=== PATIENT | female | born 1990 | race African-American/Black ===

== ENCOUNTER 2017-10-02 09:28 | Emergency (ER) | payer SELFPAY ==
[2017-10-02] MEDS ORDERED: NS 0.9% 1000 ML* 1,000 ML IV ONE ×3 (09:45→12:29)
[2017-10-02] MEDS ORDERED: Metoclopramide IV* 5 MG/ML 2 ML VIAL IV ONE (09:46)
--- NOTE | 2017-10-02 10:01 | ED ---
Abdominal Pain/Female - HPI Summary HPI Summary: Patient here with abrupt onset nausea and vomiting last night at 2100. She denies any preceding pain, fever, chills, URI symptoms, chest pain, shortness of breath, abdominal pain, flank pain, urinary symptoms, vaginal symptoms. She reports her vomiting persisted for multiple episodes despite trying to drink liquids in between. She continues to have some subtle nausea while here today. She admits her friend was vomiting on and she help take care of him. When asked about she states she could be however reported to nursing that she's had her period longer than usual and is on it now. She is having some epigastric discomfort since she's been vomiting. Otherwise continues to deny abdominal/pelvic pain. She also denies eating or drinking anything new or out of the normal, no new meds or supplements. - History of Current Complaint Chief Complaint: EDNauseaVomitDiarrh Stated Complaint: VOMITING Time Seen by Provider: 10/02/17 09:31 Hx Obtained From: Patient Pain Intensity: 8 Allergies/Adverse Reactions: Allergies Allergy/AdvReac Type Severity Reaction Status Date / Time No Known Allergies Allergy Verified 10/02/17 09:34 PMH/Surg Hx/FS Hx/Imm Hx Previously Healthy: Yes Endocrine/Hematology History: Denies: Autoimmune Disease GI History: Denies: Hx Cirrhosis, Hx Crohn's Disease, Hx Diverticulosis, Hx Gall Bladder Disease, Hx Gastroesophageal Reflux Disease, Hx Gastrointestinal Bleed, Hx Hiatal Hernia, Hx Irritable Bowel, Hx Obstructive Bowel, Hx Ulcer History: Denies: Hx Kidney Infection, Hx Kidney Stones, Other Problems/Disorders Infectious Disease History: No Infectious Disease History: Denies: Traveled Outside the [place] in Last 30 Days - Social History Alcohol Use: Weekly Hx Substance Use: No Substance Use Type: Reports: None Hx Tobacco Use: Yes Smoking Status (MU): Current Some Day Smoker Review of Systems Positive: Fatigue - feels wiped out. Negative: Fever, Chills Eyes: Negative ENT: Negative Cardiovascular: Negative Respiratory: Negative Positive: Vomiting, Nausea. Negative: Abdominal Pain, Diarrhea Genitourinary: Negative Positive: Myalgia Skin: Negative Positive: Headache Psychological: Normal All Other Systems Reviewed And Are Negative: Yes Physical Exam Triage Information Reviewed: Yes Vital Signs On Initial Exam: Initial Vitals Temp Pulse Resp BP Pulse Ox 98.3 F 85 16 106/64 96 05/05/18 09:31 10/02/17 09:31 10/02/17 09:31 10/02/17 09:31 10/02/17 09:31 Vital Signs Reviewed: Yes Appearance: Positive: No Pain Distress, Well-Nourished - Appears fatigued Skin: Positive: Warm, Skin Color Reflects Adequate Perfusion, Dry - No rash Head/Face: Positive: Normal Head/Face Inspection Eyes: Positive: Normal, EOMI, Conjunctiva Clear - Anicteric sclera ENT: Positive: Normal ENT inspection, Hearing grossly normal, Pharynx normal. Negative: Nasal congestion, Nasal drainage Neck: Positive: Supple, Nontender, No Lymphadenopathy Respiratory/Lung Sounds: Positive: Clear to Auscultation, Breath Sounds Present. Negative: Rales, Rhonchi, Wheezes Cardiovascular: Positive: Normal, RRR, S1, S2 Musculoskeletal: Positive: Normal, Strength/ROM Intact Neurological: Positive: Normal, Sensory/Motor Intact, Alert, Oriented to Person Place, Time, CN Intact II-III Psychiatric: Positive: Normal Diagnostics - Vital Signs Vital Signs Temp Pulse Resp BP Pulse Ox 10/02/17 09:37 84 98 10/02/17 09:31 98.3 F 77 16 106/64 98 - Laboratory Result Diagrams: 10/02/17 09:57 10/02/17 09:57 Lab Statement: Any lab studies that have been ordered have been reviewed, and results considered in the medical decision making process. Re-Evaluation - Re-Evaluation First Eval Change: Improved - nausea improved- would like to try drinking fluids Abdominal Pain Fem Course/Dx - Course Course Of Treatment: Pt here with abrupt onset nausea and vomiting since last night at 21:00. This persisted through the night and into today which brought her here. She's developed mild epigastric discomfort from all the vomiting however denies any lower abdominal pain. She is also not had any URI symptoms or fever and admits her friend whom she had contact with had similar symptoms on of this week. She has improved with IV fluids and Reglan. Her magnesium level was found to be slightly low so this was replaced with mag oxide by mouth which she tolerated well. Patient was able to tolerate PO and void prior to departure. She was kept for a 2nd bag of IV fluids as her BP was persistently low but eventually improved and w/o tachycardia. UA reveals + protein, ketone and urobil w/o blood or bacteria -suspect these findings correlate w/ dehydration. Other labs are remarkable for mild dehydration and viral infection. HCG is also negative for . She'll be diagnosed with viral gastroenteritis and advised on supportive care. If danger signs or symptoms present, she will return to the emergency department. - Diagnoses Provider Diagnoses: Gastroenteritis, Dehydration Discharge - Sign-Out/Discharge Documenting (check all that apply): Discharge/Admit/Transfer - Discharge Plan Condition: Stable Disposition: HOME Prescriptions: Ondansetron ODT TAB* [Zofran 4 MG Odt TAB*] 4 mg PO Q8H PRN #9 tab.odt PRN Reason: Nausea Patient Education Materials: Dehydration (ED), Gastroenteritis (ED) Referrals: No Primary Care Phys,NOPCP [Primary Care Provider] - [facility] [Outside] Additional Instructions: Rest, fluids for hydration including water, gatorade, gingerale, etc Avoid stimulants such as coffee, tea, soda, chocolate, alcohol and nicotine. You may advance diet as tolerated - start with soft foods - Bananas, rice, applesauce and toast to help form your stool - do not take immodium to prevent worsening a bacterial infection should one be present. *If you develop fever, chills, worsening of symptoms despite recommendations, return to ED - Billing Disposition and Condition Condition: STABLE Disposition: HOME
[2017-10-02 10:04] LABS: ABS Basophils 0 10^3/ul (0-0.2); ABS Eosinophils 0 10^3/ul (0-0.6); ABS Lymphocytes 0.2 10^3/ul (1.0-4.8); ABS Monocytes 0.3 10^3/ul (0-0.8); ABS Neutrophils 2.4 10^3/ul (1.5-7.7); ABS Nucleated RBC 0 10^3/ul; Eosinophil % 1.5 % (0-6); Hematocrit 39 % (35-47); Hemoglobin 12.9 g/dl (12.0-16.0); Lymphocyte % 7.7 % (25-47); Mean Corpuscular HGB Conc 33 g/dl (31-36); Mean Corpuscular Hemoglobin 29 pg (27-31); Mean Corpuscular Volume 88 fL (80-97); Mean Platelet Volume 7.8 um3 (7.4-10.4); Nucleated Red Blood Cells % 0; Platelet Count 240 10^3/ul (150-450); Red Blood Count 4.43 10^6/ul (4.0-5.4); Red Cell Distribution Width 14 % (10.5-15)
[2017-10-02 10:11] LABS: INR 1.06 (0.77-1.02)
[2017-10-02 10:21] LABS: EGFR Non-African American 90.6 (>60)
[2017-10-02] MEDS ORDERED: Magnesium Oxide TAB* 400 MG PO ONE (10:38)
[2017-10-02 12:13] LABS: Urine Appearance Clear; Urine Blood Negative (Negative); Urine Color Yellow; Urine Ketones 1+ (Negative); Urine Protein 1+(30 mg/dL) (Negative); Urine Specific Gravity 1.034 (1.010-1.030); Urine Urobilinogen Positive (Negative)
[2017-10-02] MEDS ORDERED: Ketorolac INJ* 30 MG/ML 1 ML VIAL IV PUSH ONE (12:29)
[2017-10-02 14:11] VITALS: BP 115/66
== END 2017-10-02 14:10 | disposition home or self-care (01) ==
LOC: ED 09:28
DX: K52.9 Noninfective gastroenteritis and colitis, unspecified (principal); E86.0 Dehydration; F17.200 Nicotine dependence, unspecified, uncomplicated
CPT/HCPCS: 36415; 80053; 81003; 81015; 83605; 83690; 83735; 84702; 85025; 85610; 85730; 86140; 86850; 86900; 86901; 96360; 96361; 96374; 96375; 99283; J1885; J2765